=== PATIENT | male | born 1950 | race Caucasian/White ===

== ENCOUNTER 2019-11-24 02:05 | Observation (INO) | payer MEDICARE, OTHER, SELFPAY ==
[2019-11-24] VITALS (11 sets, daily range): BP systolic 112–173; BP diastolic 67–88; PULSE 45–81; RESP 16–18; TEMP 36.5–36.9; O2SAT 94–97; BMI 25.8
--- NOTE | 2019-11-24 02:25 | CTR_ITS ---
PROCEDURE INFORMATION: Exam: CT Abdomen And Pelvis With Contrast Exam date and time: 11/24/2019 2:26 AM Age: 69 years old Clinical indication: Abdominal pain; Generalized; Prior surgery; Surgery type: Hernia TECHNIQUE: Imaging protocol: Computed tomography of the abdomen and pelvis with intravenous contrast. Radiation optimization: All CT scans at this facility use at least one of these dose optimization techniques: automated exposure control; mA and/or kV adjustment per patient size (includes targeted exams where dose is matched to clinical indication); or iterative reconstruction. Contrast material: OMNI 300; Contrast volume: 95 ml; Contrast route: INTRAVENOUS (IV); COMPARISON: No relevant prior studies available. RADIATION DOSE METRICS: Total DLP (mGy-cm): 755.16 FINDINGS: Lungs: Dependent atelectasis posterior lower lungs. Calcified granulomata right mid and lower lung. Noncalcified nodule right lower lung measures 0.3 cm series 2, image 4. Liver: Multiple hypodensities throughout the liver most suggestive of cysts with smaller hypodensities too small for definitive characterization. Largest cyst caudate lobe measures 5.0 cm. Gallbladder and bile ducts: Normal. No calcified stones. No ductal dilation. Pancreas: Normal. No ductal dilation. Spleen: Normal. No splenomegaly. Adrenals: Normal. No mass. Kidneys and ureters: Normal. No hydronephrosis. Stomach and bowel: Moderate fluid expansion of the stomach. Fluid-filled small bowel and colon. There is minor left pericolonic soft tissue stranding. Limited segment of nondistention of distal small bowel. Mild mesenteric stranding of confluence of fluid-filled small bowel low right abdomen. Distal colonic diverticulosis. Appendix: No evidence of appendicitis. Intraperitoneal space: See Soft tissues finding. Vasculature: Unremarkable. No abdominal aortic aneurysm. Lymph nodes: Unremarkable. No enlarged lymph nodes. Urinary bladder: Unremarkable as visualized. Reproductive: Unremarkable as visualized. Bones/joints: Degenerative changes of the spine. Soft tissues: Upper abdominal wall hernia containing omentum. Fat stranding of omental structures within the hernia with omental tethering. CT/CT abdomen pelvis w con* [id number] IMPRESSION: 1. Upper abdominal hernia containing fatty omentum positioned right of midline 7.2 cm cranial to the umbilicus. Indeterminate significance of associated stranding inflammation or edema and adjacent omental tethering which could be suggestive of early changes of inflammation/edema or incarceration/strangulation. 2. Diffuse moderate fluid expanded bowel involving the stomach, majority of small bowel and colon. Small collection of fluid, tethering and stranding of confluence of fluid-filled small bowel in the low right abdomen. Nonspecific additional soft tissue stranding left pericolic gutter. While the differential could include gastroenteritis/colitis or ileus an element of early or incomplete distal small bowel mechanical obstruction could be present. Consider surgical consultation. 3. Distal colonic diverticulosis. Focal soft tissue stranding involving diverticulum within the left colon with enhancement is doubtful for focal diverticulitis. 4. Multiple hepatic cysts.No further follow-up is recommended. 5. Nodule right lower lung.For patients at low risk (minimal or absent history of smoking and of other known risk factors), no routine follow-up is indicated. For patients at high risk (history of smoking or of other known risk factors), consider optional CT Chest at 12 months. (Reference: Austyn) References: Austyn H, et al. Guidelines for Management of Incidental Pulmonary Nodules Detected on CT Images: From the Fleischner Society 2017. Radiology. 2017;284(1):228-243. Radiation Dose CTDIVOL = (mGy): DLP = 755.16 (mGy-cm)
--- NOTE | 2019-11-24 02:28 | ED_ITS ---
HPI - Abdominal Pain General: Chief Complaint: Abdominal Pain Stated Complaint: ab pain and cramping Time Seen by Provider: 11/24/19 02:20 Source: patient Mode of arrival: ambulatory Limitations: no limitations History of Present Illness: HPI narrative: Mr. Fierro is a nice 69-year-old male who comes in complaining of cramping abdominal pain. His pain is been constant since about 3 PM yesterday. Scribes the pain is mostly the lower part of his abdomen but is now moving up. States he is not had a bowel movement for couple days now. He feels as though his abdomen is bloated. Tonight before coming in he had numerous episodes of vomiting. He denies any blood in his vomit or recent blood in his stools. Denies any fevers or chills. He has no testicle pain or urinary symptoms such as urinary frequency or urgency. Patient denies having anything like this in the past. He is not tried anything at home for this other than milk of magnesia but that did not help. Patient does state that he has had a hernia surgery in the past that has failed and he has a recurrent hernia. At this time he states that is where his pain is most significant. Associated Symptoms: Reports nausea and vomiting; Denies chills, coffee ground emesis, constipation, GI cramping, diarrhea, dysuria, fever(s), heartburn, hematochezia, hematuria, hematemesis, melena and syncope Review of Systems Const: Denies: fever(s), chills, body aches, fatigue, malaise or diaphoresis Eyes: Denies: change in vision, blurry vision, photophobia, eye discomfort, eye discharge, eye redness or yellow eyes ENMT: Denies: throat pain, odynophagia, hoarseness, swelling of lips/tongue, ear or mastoid pain, ear discharge, change in hearing or nasal discharge Card: Denies: chest pain, palpitations, irregular heart rhythm, edema, lightheadedness, syncope, pre-syncope, dyspnea on exertion or orthopnea Resp: Denies: dyspnea, productive cough, non-productive cough, wheezing, hemoptysis or chest congestion GI: Reports: abdominal pain, nausea and vomiting; Denies: hematemesis, coffee ground emesis, heartburn, diarrhea, constipation, GI cramping, hematochezia or melena : Denies: flank pain, dysuria, urinary frequency, urinary urgency or hematuria Musc: Denies: neck pain, back pain, extremity pain, extremity swelling, joint pain, joint swelling, joint redness, joint warmth or joint stiffness Skin/Breast: Denies: rash, pruritus, erythema, skin pain or skin tenderness Neuro: Denies: headache(s), numbness in extremities, weakness in extremities, sensory changes, lack of coordination, difficulty walking, dizziness, vertigo, confusion, Slurred speech present or seizure-like activity Naldo/Lymph: Denies: easy bruising, easy bleeding, petechiae, purpura or enlarged lymph nodes All/Imm: Denies: urticaria, throat swelling, tongue swelling, facial swelling or acute wheezing Physical Exam Const: COMMON NORMALS: no acute distress, patient oriented x3, no limitations and alert GENERAL APPEARANCE: cooperative HENMT: COMMON NORMALS: normocephalic, atraumatic, external ears normal, EAC's normal and Normal external nose present HEAD & SCALP: normal to inspection, normocephalic and atraumatic FACE & SINUS: normal facial exam and face symmetric NOSE: Normal external nose present and Normal nares present EXTERNAL EAR: Yes external ears normal EXTERNAL AUDITORY CANAL: EAC's normal MOUTH: Normal oral and palatal mucosa present, lip normal and tongue normal Eye: COMMON NORMALS: Equal, round and reactive pupils present and conjunctivae normal GENERAL EYE: appearance normal, both eyes and all related structures ALIGNMENT: Yes alignment normal PERIORBITAL: periorbital findings normal EYELID: eyelids normal CONJUNCTIVA: Yes conjunctivae normal SCLERA: sclerae normal PUPIL: Yes Equal, round and reactive pupils present Neck/C-Spine: COMMON NORMALS: full ROM, no lymphadenopathy, supple, no meningeal signs and no JVD GENERAL: Yes normal visual inspection and Yes trachea midline Chest: COMMONS NORMALS: normal inspection of the chest and normal palpation of entire chest wall Resp: COMMON NORMALS: normal respiratory effort, No retractions, No use of accessory muscles and clear to auscultation bilaterally EFFORT & INSPECTION: Yes able to speak in complete sentences and Yes symmetric chest movement AUSCULTATION: clear to auscultation bilaterally, no crackles, no rales, no rhonchi and no wheezes Cardio: COMMON NORMALS: no JVD, regular rate, regular rhythm, S1 normal heart sound present and S2 normal heart sound present RATE: regular rate RHYTHM: regular rhythm HEART SOUNDS: S1 normal heart sound present, S2 normal heart sound present, no click, no gallops, no murmurs and no rubs GI: COMMON NORMALS: Soft to palpation and No hepatosplenomegaly present PALPATION: Yes Soft to palpation, Yes Tenderness to palpation present (GI) (Moderate diffusely.), No Guarding due to palpation present (GI), No Rigid due to palpation, Yes No hepatosplenomegaly present, No Hernia present, No Palpable mass present and No Pulsatile mass present : COMMON NORMALS: Yes no CVA tenderness BLADDER/KIDNEY EXAM: Yes no CVA tenderness Back/Pelvis: COMMON NORMALS: no CVA tenderness, thoracic and lumbar spine normal to inspection, no thoracic nor lumbar tenderness and thoraco-lumbar ROM normal Extremity: COMMON NORMALS: normal to inspection, full ROM, capillary refill normal, no joint enlargement, no clubbing, cyanosis or edema and no calf tenderness Neuro: COMMON NORMALS: patient oriented x3, CN's II-XII intact bilaterally, moves all extremities, no focal motor deficits and no sensory deficits noted SENSORIUM/ORIENTATION: Yes alert MENINGEAL SIGNS: Yes no meningeal signs SPEECH: speech normal Psych: COMMON NORMALS: mental status grossly normal, Normal thought process present, cooperative, normal affect, speech normal and activity/motor behavior normal SPEECH: Yes normal speech THOUGHT PROCESS: Normal thought process present Skin: COMMON NORMALS: no rashes or lesions noted, turgor normal, no jaundice, no petechiae and no mottling GENERAL SKIN EXAM: no rashes or lesions noted and turgor normal Course Vital Signs: Vital signs: Vital Signs Temperature 98.3 F 11/24/19 02:14 Pulse Rate 55 L 11/24/19 03:06 Respiratory Rate 18 11/24/19 03:06 Blood Pressure 133/76 11/24/19 03:06 Pulse Oximetry 96 11/24/19 03:06 MDM - Abdominal Pain MDM Narrative: Medical decision making narrative: 444 -after coming back from surgery and on reexamination the patient is feeling tremendously better. He did have a large bowel movement that he states was not diarrhea and nonbloody here in the ER. When asked to show me where his greatest area of pain had previously been the patient guided my hand to his hernia and with just laying my hand on the area and without any pressure at all the hernia spontaneously reduced. The patient did not have any pain with this. The patient states his hernia will come and go and has done so ever since his hernia surgery failed in 2010. I discussed the CT in detail with the radiologist and she believes the patient is likely going to have recurrent symptoms. She gave a broad differential of early partial mechanical small bowel obstruction, colitis, gastroenteritis among many others. I see no clinical evidence of mesenteric ischemia. At this time though the patient is already beginning to have some cramping recur but it is not as intense and it is much shorter in duration than prior. Concerned the patient may have recurrence of his symptoms and he [place] from here. He has no chronic medical problems. I reviewed the case in full with Dr. Andrea he agrees to admit the patient to the hospital for observation. At this time the patient has no sign of a surgical abdomen/peritonitis. I see no evidence of mesenteric ischemia. We will continue to gently hydrate him and give him empiric antibiotics for any gastroenteritis or colitis. Further care will be dictated by Dr. Andrea. Also going to hold off an NG tube at this time as there is no definitive obstruction and the patient has not vomited since he has been here. Differential Diagnosis: Differential diagnosis abdominal pain: Likely abdominal pain, acute appendicitis, constipation, diverticulitis, gastroenteritis, pancreatitis and small bowel obstruction Lab Data: Attestation: I reviewed the patient's lab results. Labs: Lab Results 11/24/19 11/24/19 11/24/19 Range/Units 02:29 02:29 02:29 WBC 8.6 (4.0-10.0) 10^3/ uL RBC 5.05 (4.1-5.3) 10^6/u L Hgb 16.0 (11.7-16.6) g/dL Hct 47.8 (42.0-52.0) % MCV 94.7 H (80-94) fL MCH 31.7 (28.0-34.0) pg MCHC 33.5 (30.0-36.0) g/dL RDW 13.3 (12.1-15.1) % Plt Count 284 (130-400) 10^3/c mm MPV 10.0 (7.4-10.4) fL Neut % (Auto) 84.8 % Lymph % (Auto) 9.1 % Bowie % (Auto) 5.1 % Eos % (Auto) 0.2 % Baso % (Auto) 0.5 % Neut # (Auto) 7.28 (1.8-7.7) 10^3/u L Lymph # (Auto) 0.8 (0.8-4.8) 10^3/u L Bowie # (Auto) 0.4 (0.2-0.9) 10^3/u L Eos # (Auto) 0.0 (0.0-0.8) 10^3/u L Baso # (Auto) 0.0 (0.0-0.1) 10^3/u L Nucleated RBC % (a uto) 0 % Nucleated RBCs # 0.0 /100WBC Sodium 134 L (136-145) mmol/L Potassium 4.0 (3.5-5.1) mmol/L Chloride 101 (98-107) mmol/L Carbon Dioxide 22 (22-29) mmol/L Anion Gap 15.0 (5-19) BUN 14 (8-23) mg/dL Creatinine 0.8 (0.7-1.2) mg/dL GFR Calculation 96.4 (90-130) mL/min Glucose 162 H (65-115) mg/dL Calculated Osmolal ity 282 L (285-295) mOsm/k g Lactic Acid 1.9 (0.5-2.2) mmol/L Calcium 9.7 (8.5-10.5) mg/dL Magnesium 2.4 H (1.7-2.3) mg/dL Total Bilirubin 1.1 (0.15-1.2) mg/dL AST 21 (0-40) U/L ALT 17 (0-41) U/L Alkaline Phosphata se 48 (40-130) IU/L Total Protein 7.4 (6.6-8.7) g/dL Albumin 4.3 (3.5-5.2) g/dL Globulin 3.1 (1.3-4.6) g/dL Lipase 20 (13-60) U/L Urine Color (Yellow) Urine Appearance (CLEAR) Urine pH (5-7) Ur Specific Gravit y (1.005-1.030) Urine Protein (Negative) Urine Glucose (UA) (Normal) Urine Ketones (Negative) Urine Blood (Negative) Urine Nitrate (Negative) Urine Bilirubin (Negative) Prot Sulfosalicyli c Acd (Negative) Urine Urobilinogen (Negative) mg/dL Ur Leukocyte Luci ase (Negative) Urine RBC (0-2) /hpf Urine WBC (0-5) /hpf Ur Squamous Epith Cells (0-5) /hpf Amorphous Sediment /hpf Urine Bacteria (NONE) /hpf 11/24/19 Range/Units 02:39 WBC (4.0-10.0) 10^3/ uL RBC (4.1-5.3) 10^6/u L Hgb (11.7-16.6) g/dL Hct (42.0-52.0) % MCV (80-94) fL MCH (28.0-34.0) pg MCHC (30.0-36.0) g/dL RDW (12.1-15.1) % Plt Count (130-400) 10^3/c mm MPV (7.4-10.4) fL Neut % (Auto) % Lymph % (Auto) % Bowie % (Auto) % Eos % (Auto) % Baso % (Auto) % Neut # (Auto) (1.8-7.7) 10^3/u L Lymph # (Auto) (0.8-4.8) 10^3/u L Bowie # (Auto) (0.2-0.9) 10^3/u L Eos # (Auto) (0.0-0.8) 10^3/u L Baso # (Auto) (0.0-0.1) 10^3/u L Nucleated RBC % (a uto) % Nucleated RBCs # /100WBC Sodium (136-145) mmol/L Potassium (3.5-5.1) mmol/L Chloride (98-107) mmol/L Carbon Dioxide (22-29) mmol/L Anion Gap (5-19) BUN (8-23) mg/dL Creatinine (0.7-1.2) mg/dL GFR Calculation (90-130) mL/min Glucose (65-115) mg/dL Calculated Osmolal ity (285-295) mOsm/k g Lactic Acid (0.5-2.2) mmol/L Calcium (8.5-10.5) mg/dL Magnesium (1.7-2.3) mg/dL Total Bilirubin (0.15-1.2) mg/dL AST (0-40) U/L ALT (0-41) U/L Alkaline Phosphata se (40-130) IU/L Total Protein (6.6-8.7) g/dL Albumin (3.5-5.2) g/dL Globulin (1.3-4.6) g/dL Lipase (13-60) U/L Urine Color Yellow (Yellow) Urine Appearance Sl hazy (CLEAR) Urine pH 8 H (5-7) Ur Specific Gravit y 1.020 (1.005-1.030) Urine Protein Neg (Negative) Urine Glucose (UA) Norm (Normal) Urine Ketones 1+ H (Negative) Urine Blood Neg (Negative) Urine Nitrate Negative (Negative) Urine Bilirubin Neg (Negative) Prot Sulfosalicyli c Acd Negative (Negative) Urine Urobilinogen Norm (Negative) mg/dL Ur Leukocyte Luci ase Negative (Negative) Urine RBC None (0-2) /hpf Urine WBC None (0-5) /hpf Ur Squamous Epith Cells Rare (0-5) /hpf Amorphous Sediment 2+ /hpf Urine Bacteria Trace (NONE) /hpf Imaging Data ^: CT Abd/Pel: Radiologist's impression: [address] [address] [address] Scan Report Signed with Addenda Patient: Rocco Fierro Unit #: [id number] : 1950 Age/Sex: 69 / M ADM Date: 11/24/19 Loc: ER Room/Bed: Attending Dr: Ordering Provider/Ordering MD: Michelle Arriaga DO Date of Service: 11/24/19 Procedure(s): CT abdomen pelvis w con* [id number] Accession Number(s): [id number] Report Number: [id number]/CT abdomen pelvis w con* [id number] THIS REPORT CONTAINS FINDINGS THAT MAY BE CRITICAL TO PATIENT CARE. The findings were verbally communicated via telephone conference with Michelle Massey by Dr. Thomas on 11/24/2019 4:00 AM CDT. The results were acknowledged and understood. Radiation Dose CTDIVOL = (mGy): DLP = 755.16 (mGy-cm) Addendum Dictated By: Billie Thomas DO Addendum Signed By: Billie Thomas DO Signed Date/Time: 11/23 0419 Addendum Cosigned By: PROCEDURE INFORMATION: Exam: CT Abdomen And Pelvis With Contrast Exam date and time: 11/24/2019 2:26 AM Age: 69 years old Clinical indication: Abdominal pain; Generalized; Prior surgery; Surgery type: Hernia TECHNIQUE: Imaging protocol: Computed tomography of the abdomen and pelvis with intravenous contrast. Radiation optimization: All CT scans at this facility use at least one of these dose optimization techniques: automated exposure control; mA and/or kV adjustment per patient size (includes targeted exams where dose is matched to clinical indication); or iterative reconstruction. Contrast material: OMNI 300; Contrast volume: 95 ml; Contrast route: INTRAVENOUS (IV); COMPARISON: No relevant prior studies available. RADIATION DOSE METRICS: Total DLP (mGy-cm): 755.16 FINDINGS: Lungs: Dependent atelectasis posterior lower lungs. Calcified granulomata right mid and lower lung. Noncalcified nodule right lower lung measures 0.3 cm series 2, image 4. Liver: Multiple hypodensities throughout the liver most suggestive of cysts with smaller hypodensities too small for definitive characterization. Largest cyst caudate lobe measures 5.0 cm. Gallbladder and bile ducts: Normal. No calcified stones. No ductal dilation. Pancreas: Normal. No ductal dilation. Spleen: Normal. No splenomegaly. Adrenals: Normal. No mass. Kidneys and ureters: Normal. No hydronephrosis. Stomach and bowel: Moderate fluid expansion of the stomach. Fluid-filled small bowel and colon. There is minor left pericolonic soft tissue stranding. Limited segment of nondistention of distal small bowel. Mild mesenteric stranding of confluence of fluid-filled small bowel low right abdomen. Distal colonic diverticulosis. Appendix: No evidence of appendicitis. Intraperitoneal space: See Soft tissues finding. Vasculature: Unremarkable. No abdominal aortic aneurysm. Lymph nodes: Unremarkable. No enlarged lymph nodes. Urinary bladder: Unremarkable as visualized. Reproductive: Unremarkable as visualized. Bones/joints: Degenerative changes of the spine. Soft tissues: Upper abdominal wall hernia containing omentum. Fat stranding of omental structures within the hernia with omental tethering. CT/CT abdomen pelvis w con* [id number] IMPRESSION: 1. Upper abdominal hernia containing fatty omentum positioned right of midline 7.2 cm cranial to the umbilicus. Indeterminate significance of associated stranding inflammation or edema and adjacent omental tethering which could be suggestive of early changes of inflammation/edema or incarceration/strangulation. 2. Diffuse moderate fluid expanded bowel involving the stomach, majority of small bowel and colon. Small collection of fluid, tethering and stranding of confluence of fluid-filled small bowel in the low right abdomen. Nonspecific additional soft tissue stranding left pericolic gutter. While the differential could include gastroenteritis/colitis or ileus an element of early or incomplete distal small bowel mechanical obstruction could be present. Consider surgical consultation. 3. Distal colonic diverticulosis. Focal soft tissue stranding involving diverticulum within the left colon with enhancement is doubtful for focal diverticulitis. 4. Multiple hepatic cysts.No further follow-up is recommended. 5. Nodule right lower lung.For patients at low risk (minimal or absent history of smoking and of other known risk factors), no routine follow-up is indicated. For patients at high risk (history of smoking or of other known risk factors), consider optional CT Chest at 12 months. (Reference: Austyn) References: Tazhogail H, et al. Guidelines for Management of Incidental Pulmonary Nodules Detected on CT Images: From the Fleischner Society 2017. Radiology. 2017;284(1):228-243. Radiation Dose CTDIVOL = (mGy): DLP = 755.16 (mGy-cm) Dictated By: Billie Thomas DO Signed By: Billie Thomas DO Signed Date/Time: 11/24/19418 DD/ 6 Discharge Plan Discharge Patient Disposition: Placed in Observation Clinical Impression: Abdominal pain, Gastroenteritis, Small bowel obstruction Condition: Stable Coding Level of Care Code ED Specialist [employer] for [employer] Fwd Exam Comprehensive
[2019-11-24] MEDS: sodium chloride 0.9% 1,000 ML 100 ML IV ×2 (02:39→03:13)
[2019-11-24] MEDS: ondansetron 2 mg/ML SDV 2 mL 4 MG IVP (02:39)
[2019-11-24] MEDS: morphine 4 mg/mL SDV 1 mL IVP (02:39)
[2019-11-24 02:46] LABS: Basophils % 0.5 %; Eosinophils % 0.2 %; Hematocrit 47.8 % (42.0-52.0); Lymphocytes # 0.8 10^3/uL (0.8-4.8); Lymphocytes % 9.1 %; Mean Corpuscular HGB Conc 33.5 g/dL (30.0-36.0); Mean Corpuscular Hemoglobin 31.7 pg (28.0-34.0); Mean Corpuscular Volume 94.7 fL (80-94); Monocytes # 0.4 10^3/uL (0.2-0.9); Monocytes % 5.1 %; Neutrophils # 7.28 10^3/uL (1.8-7.7); Neutrophils % 84.8 %; Nucleated Red Blood Cells % 0 %; Platelet Count 284 10^3/cmm (130-400); Red Blood Count 5.05 10^6/uL (4.1-5.3); Red Cell Distribution Width 13.3 % (12.1-15.1); White Blood Count 8.6 10^3/uL (4.0-10.0)
[2019-11-24 02:59] LABS: Alanine Aminotransferase 17 U/L (0-41); Albumin Level 4.3 g/dL (3.5-5.2); Alkaline Phosphatase 48 IU/L (40-130); Aspartate Amino Transferase 21 U/L (0-40); Blood Urea Nitrogen 14 mg/dL (8-23); Calcium 9.7 mg/dL (8.5-10.5); Carbon Dioxide 22 mmol/L (22-29); Chloride 101 mmol/L (98-107); Creatinine Clr Calc Pharmacy 91.1035; Globulin 3.1 g/dL (1.3-4.6); Glomerular Filtration Rate 96.4 mL/min (90-130); Glucose 162 mg/dL (65-115); Lactic Sepsis W/Reflex 1.9 mmol/L (0.5-2.2); Lipase 20 U/L (13-60); Magnesium 2.4 mg/dL (1.7-2.3); Osmolality Calculated 282 mOsm/kg (285-295); Sodium 134 mmol/L (136-145); Total Bilirubin 1.1 mg/dL (0.15-1.2); Total Protein 7.4 g/dL (6.6-8.7)
[2019-11-24 03:03] LABS: Bilirubin Urine Neg (Negative); Blood Urine Neg (Negative); Glucose Urine UA Norm (Normal); Ketones Urine 1+ (Negative); Leukocyte Esterase Urine Negative (Negative); Nitrate Urine Negative (Negative); Protein Urine Neg (Negative); Squamous Epithelial Cell Urine RARE /hpf (0-5); Sulfosalicylic Acid Urine Negative (Negative); Urine Appearance SL Hazy (CLEAR); Urine Color Yellow (Yellow); Urobilinogen Urine Norm (Negative); pH Urine 8 (5-7)
[2019-11-24 03:04] LABS: Amorphous Sediment Urine 2+ /hpf; Bacteria Urine TRACE /hpf
--- NOTE | 2019-11-24 03:08 | PC.NURSE ---
during pt prunding, pt assisted to bathroom
[2019-11-24] MEDS: iohexol 300 mg/mL 100 mL Btl IV (03:27)
--- NOTE | 2019-11-24 04:52 | PC.NURSE ---
Dr informed pt of inpatient vs outpatient options. Pt states he wishes to make outpatient appt with surgeon after establishing with a local PCP. ok with pt's choice. Will provide d/c orders after last liter of fluid
--- NOTE | 2019-11-24 04:59 | PC.NURSE ---
pt changed his mind, wishes to be admitted
[2019-11-24] MEDS: ciprofloxacin 400 MG/200 ML PREMIX 200 MG IV (05:14)
--- NOTE | 2019-11-24 06:27 | P.HP_ITS ---
Providers/Chief Complaint Admitting Physician: Kamila Ling MD Chief Complaint: ab pain and cramping History of Present Illness Chief Complaint: History of present illness: Rocco Fierro is a 69 year old male patient presents to the emergency department with worsening crampy abdominal pain as it started yesterday. Patient is attributing it to constipation as he has been chronically constipated and take MiraLAX. He also had history of ventral hernia repair in [facility] with a mesh placement and it recurred but the patient is able to push it back with ease. Eyes any fevers chills nausea or vomiting and he did have a bowel movement after the CT scan was done. Patient reports that he has been tested for COVID-19 back in August and he and his were positive and unfortunately his spouse later on. Patient was retested back early in October and he was negative for COVID-19. As his symptoms were worse general surgery was consulted for further evaluation potential management. She reports to me that he got dehydrated yesterday and he does give history of diverticulosis and he is keeping up with his screening colonoscopies. She describes his pain more crampy in the center of the abdomen without being referred nothing seems to make it worse yet he reports constipation and he did have some relief with a bowel movement. CT scan of the abdomen and pelvis was done that showed FINDINGS: Lungs: Dependent atelectasis posterior lower lungs. Calcified granulomata right mid and lower lung. Noncalcified nodule right lower lung measures 0.3 cm series 2, image 4. Liver: Multiple hypodensities throughout the liver most suggestive of cysts with smaller hypodensities too small for definitive characterization. Largest cyst caudate lobe measures 5.0 cm. Gallbladder and bile ducts: Normal. No calcified stones. No ductal dilation. Pancreas: Normal. No ductal dilation. Spleen: Normal. No splenomegaly. Adrenals: Normal. No mass. Kidneys and ureters: Normal. No hydronephrosis. Stomach and bowel: Moderate fluid expansion of the stomach. Fluid-filled small bowel and colon. There is minor left pericolonic soft tissue stranding. Limited segment of nondistention of distal small bowel. Mild mesenteric stranding of confluence of fluid-filled small bowel low right abdomen. Distal colonic diverticulosis. Appendix: No evidence of appendicitis. Intraperitoneal space: See Soft tissues finding. Vasculature: Unremarkable. No abdominal aortic aneurysm. Lymph nodes: Unremarkable. No enlarged lymph nodes. Urinary bladder: Unremarkable as visualized. Reproductive: Unremarkable as visualized. Bones/joints: Degenerative changes of the spine. Soft tissues: Upper abdominal wall hernia containing omentum. Fat stranding of omental structures within the hernia with omental tethering. CT/CT abdomen pelvis w con* [id number] IMPRESSION: 1. Upper abdominal hernia containing fatty omentum positioned right of midline 7.2 cm cranial to the umbilicus. Indeterminate significance of associated stranding inflammation or edema and adjacent omental tethering which could be suggestive of early changes of inflammation/edema or incarceration/strangulation. 2. Diffuse moderate fluid expanded bowel involving the stomach, majority of small bowel and colon. Small collection of fluid, tethering and stranding of confluence of fluid-filled small bowel in the low right abdomen. Nonspecific additional soft tissue stranding left pericolic gutter. While the differential could include gastroenteritis/colitis or ileus an element of early or incomplete distal small bowel mechanical obstruction could be present. Consider surgical consultation. 3. Distal colonic diverticulosis. Focal soft tissue stranding involving diverticulum within the left colon with enhancement is doubtful for focal diverticulitis. 4. Multiple hepatic cysts.No further follow-up is recommended. 5. Nodule right lower lung.For patients at low risk (minimal or absent history of smoking and of other known risk factors), no routine follow-up is indicated. For patients at high risk (history of smoking or of other known risk factors), consider optional CT Chest at 12 months. (Reference: [place]) Review of Systems General: Reports: 10 or more systems reviewed and unremarkable except in HPI and below Medications/Allergies Home Medications Medication Instructions Recorded Confirmed Last Taken Type alprazolam 0.25 mg PO BEDTIME 11/24/19 11/24/19 11/24/19 History aspirin 81 mg PO DAILY 11/24/19 11/24/19 11/23/19 History metoprolol succinate 12.5 mg PO DAILY 11/24/19 11/24/19 11/23/19 History Allergies Allergy/AdvReac Type Severity Reaction Status Date / Time Penicillins Allergy ADR-Faintin Verified 11/24/19 06:46 g PFSH Acute PFSH: Medical History History of abdominal hernia Surgical History H/O ventral hernia repair Vitals/I&O/Wt Last Vital Signs Temp 98.3 F 11/24/19 02:14 Pulse 52 L 11/24/19 06:01 Resp 18 11/24/19 06:01 BP 118/72 11/24/19 06:01 Pulse Ox 94 11/24/19 06:01 Weight last 48 hrs Weight 170 lb Physical Exam Narrative: EXAM NARRATIVE: Patient is conscious alert oriented X3 BMI Head and neck examination PERRLA no masses no cervical lymphadenopathy no jaundice Cardiac examination audible S1-S2 no murmurs no gallops no arrhythmias Chest is clear bilateral,abscence of Rhonchi or wheezes,no surgical emphysema Right sided ventral abdominal hernia, defect is appreciated with no inca rceration. Measures about 3 x 3 inches Otherwise abdomen nontender nondistended soft no organomegaly guarding or rigidity/no signs of peritonitis Extremities no cyanosis no clubbing no edema Data : 11/24/19 02:29 11/24/19 02:29 A&P Assessment and plan (1) Abdominal pain: 6:30 AM after thorough history physical examination and reviewing the chart and images with my personal interpretation. I do believe that the patient got dehydrated in addition to element of constipation. Yet some of the subtle changes on the CT scan could be concerning for a potential underlying enteritis/colitis. We will plan to have the patient on antimicrobial therapy with IV fluid resuscitation. No surgical intervention at this point Repeated physical examination clear liquids 1300 Patient seems to be doing well and had multiple loose bowel movements and tolerating p.o. intake and have good urine output. Assurance and education All questions have been answered and all concerns have been addressed to patient's satisfaction. Status: Acute Qualifiers: Abdominal location: generalized Qualified Code(s): R10.84 - Generalized abdominal pain Attestations Medical Necessity Statement*: Observation status for appropriate hydration and repeated physical examination. We will plan to discharge home today. Time Spent in Patient Care: (>than 50% of time spent in counselling and/or direct pt care on unit) . 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
[2019-11-24] MEDS: metroNIDAZOLE IV 500 MG/100 ML PREMIX 100 MG IV (09:37)
[2019-11-24] MEDS: sodium chloride 0.9% 1,000 ML 150 ML IV (09:37)
--- NOTE | 2019-11-24 13:00 | PM.SDS ---
Short Stay Summary Providers Date of Admit/Discharge: 11/24/19 Attending Provider: Sean Andrea MD Chief Complaint: ab pain and cramping HPI History of Present Illness Rocco Fierro is a 69 year old male presents with worsening crampy abdominal pain as patient has been constipated, was worked up in the emergency department and CT scan was obtained was not suggesting of any acute surgical disease. Except for the patient had history of recurrent hernia and he has been reducing it on his own. Review of Systems General: Reports: 10 or more systems reviewed and unremarkable except in HPI and below Home Meds/Allergies Home Medications and Allergies Home Medications Medication Instructions Recorded Confirmed Type alprazolam 0.25 mg PO BEDTIME 11/24/19 11/24/19 History aspirin 81 mg PO DAILY 11/24/19 11/24/19 History metoprolol succinate 12.5 mg PO DAILY 11/24/19 11/24/19 History Allergies Allergy/AdvReac Type Severity Reaction Status Date / Time Penicillins Allergy ADR-Faintin Verified 11/24/19 13:01 g PFSH Acute PFSH: Medical History History of abdominal hernia Surgical History H/O ventral hernia repair Vitals/I&O/Wt Last Vital Signs Temp 98.4 F 11/24/19 11:16 Pulse 60 11/24/19 11:16 Resp 16 11/24/19 11:16 BP 128/67 11/24/19 11:16 Pulse Ox 94 11/24/19 11:16 11/23/19 11/24/19 11/24/19 22:59 06:59 14:59 Intake Total 240 / 240 Balance 240 / 240 Weight last 48 hrs Weight 170 lb Physical Exam Narrative: EXAM NARRATIVE: Patient is conscious alert oriented X3 BMI Head and neck examination PERRLA no masses no cervical lymphadenopathy no jaundice Cardiac examination audible S1-S2 no murmurs no gallops no arrhythmias Chest is clear bilateral,abscence of Rhonchi or wheezes,no surgical emphysema Right sided ventral abdominal hernia, defect is appreciated with no incarceration. Measures about 3 x 3 inches Otherwise abdomen nontender nondistended soft no organomegaly guarding or rigidity/no signs of peritonitis Extremities no cyanosis no clubbing no edema Hospital Course Admission Diagnoses: Abdominal pain Hospital Course: Patient overall doing well and has been responding to conservative measures and tolerating well p.o. intake and have good urine output. Multiple bowel movements Discharge Summary: 69 years old gentleman with crampy abdominal pain attributed to element of dehydration and history of constipation. Asymptomatic ventral incisional hernia. Overall patient did well continue to have stable vital signs and tolerating p.o. intake and good urine output. SSS Data Data Completed and Pending: Completed Studies During Hospitalization Category Date Time Status CT abdomen pelvis w con* [id number] Stat Cat Scan 11/24/19 02:25 Completed Pending at discharge Category Date Time Status Basic Metabolic P tez AM LABS Lab 11/25/19 04:00 Ordered Complete Blood Co unt w/Auto AM LABS Lab 11/25/19 04:00 Ordered Diagnoses at Discharge Discharge Diagnosis (1) Abdominal pain: Status: Acute Problem details: Condition resolved and patient responding to conservative measures Qualifiers: Abdominal location: generalized Qualified Code(s): R10.84 - Generalized abdominal pain Discharge Plan Discharge Patient Disposition: Home Condition: Stable Prescriptions: New ciprofloxacin HCl 500 mg tablet 500 mg PO BID Qty: 14 RF: 0 Flagyl 500 mg tablet 500 mg PO BID 7 Days Qty: 14 RF: 0 Continued alprazolam 0.25 mg tablet 0.25 mg PO BEDTIME RF: 0 aspirin 81 mg Tablet,Chewable 81 mg PO DAILY RF: 0 metoprolol succinate 25 mg tablet extended release 24 hr 12.5 mg PO DAILY RF: 0 Discharge Orders: Discharge Order (Routine); Ordered 11/24/19 Ordered By: Sean Andrea Referrals: Sean Andrea MD [Physician] - (Return to surgery office in 2-week) Discharge Diet: Advance as tolerated Discharge Activity: Increase activity as tolerated Attestations Medical Necessity Statement*: Observation for appropriate IV fluid hydration and antimicrobial therapy Time Spent in Patient Care*: greater than 30 min Specific Discharge Activities: Specific discharge activities: educating patient Status at Discharge: Cognitive status at discharge: cognitively intact, Behavioral status at discharge: cooperative, Functional status at discharge: independent ambulation Overall status at discharge: patient is progressing back to baseline Quality Metrics Clinical Quality Measures: During this hospital stay, did patient experience: None Coding Level of Care Code Acute 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
== END 2019-11-24 14:25 | disposition home or self-care (01) ==
LOC: ER 04:53 → MEDSURG 06:27
PROVIDERS: Admitting Provider Hospitalist; Emergency Provider Emergency Medicine; Visit Provider Surgery
DX: R10.84 Generalized abdominal pain (principal); Z79.82 Long term (current) use of aspirin
CPT/HCPCS: 12345; 74177; 80053; 81001; 83605; 83690; 83735; 85025; 96361; 96365; 96375; 99283; 99285; G0378; J0744; J2270; J2405; J7030; Q9967; S0030

== ENCOUNTER 2022-10-28 05:11 | Emergency (ER) | payer MEDICARE, OTHER, SELFPAY ==
[2022-10-28 05:28] VITALS: BP 150/56; PULSE 66; RESP 18; TEMP 36.8; O2SAT 94; BMI 25.8
--- NOTE | 2022-10-28 05:34 | ED_ITS ---
Documented by User: Edison Rodríguez DO 10/28/22 05:36 HPI - Nausea/Vomiting/Diarrhea General: Chief complaint: Nausea/Vomiting/Diarrhea Stated complaint: n/v/d Time Seen by Provider: 10/28/22 05:13 History of Present Illness: Patient presents to the ER with complaints of nausea vomiting started around noon yesterday. Diarrhea that started around 8 PM last night. Patient's been having cramps in his lower abdomen otherwise denies any pain. Patient states he was exposed to COVID last week and and he feels the same this time as he did the last time he was diagnosed with COVID. Patient not been able to keep anything down and if he does keep it down it goes were immediately right at the other end. Patient states he knows he is dehydrated. Review of Systems General: Reports: 10 or more systems reviewed and unremarkable except in HPI and below PFSH ED PFSH: Medical History (Updated 10/28/22 @ 06:35 by Nguyễn Patterson DO) History of abdominal hernia Surgical History H/O ventral hernia repair Physical Exam Const: COMMON NORMALS: no acute distress, average body habitus, patient oriented x3, no limitations, healthy appearing, alert and well nourished HENMT: COMMON NORMALS: normocephalic, atraumatic, hearing grossly normal bilaterally, external ears normal, Normal external nose present and moist oral mucous membranes HEAD & SCALP: normocephalic and atraumatic NOSE: Normal external nose present EXTERNAL EAR: Yes external ears normal Eye: COMMON NORMALS: Equal, round and reactive pupils present, EOMs intact bilaterally, conjunctivae normal and no scleral icterus CONJUNCTIVA: Yes conjunctivae normal PUPIL: Yes Equal, round and reactive pupils present Neck/C-Spine: COMMON NORMALS: no JVD Chest: COMMONS NORMALS: normal inspection of the chest and normal palpation of entire chest wall Resp: COMMON NORMALS: normal respiratory effort, No retractions, No use of accessory muscles and clear to auscultation bilaterally AUSCULTATION: clear to auscultation bilaterally Cardio: COMMON NORMALS: no JVD, regular rate, regular rhythm, S1 normal heart sound present, S2 normal heart sound present, No gallops present (Cardio), No clicks present (Cardio), No murmurs present (Cardio) and No rub (Cardio) RATE: regular rate RHYTHM: regular rhythm HEART SOUNDS: S1 normal heart sound present and S2 normal heart sound present GI: COMMON NORMALS: Normal to inspection, nondistended, normoactive bowel sounds present, Soft to palpation, No hepatosplenomegaly present, no masses and no bruits; negative for non-tender (Mildly tender throughout) PALPATION: Yes Soft to palpation and Yes No hepatosplenomegaly present : COMMON NORMALS: Yes no CVA tenderness BLADDER/KIDNEY EXAM: Yes no CVA tenderness Back/Pelvis: COMMON NORMALS: no CVA tenderness Neuro: COMMON NORMALS: patient oriented x3 SENSORIUM/ORIENTATION: Yes alert Course Vital Signs: Vital signs: Vital Signs Temperature 98.3 F 10/28/22 05:28 Pulse Rate 66 10/28/22 05:28 Respiratory Rate 18 10/28/22 05:28 Blood Pressure 150/56 10/28/22 05:28 Pulse Oximetry 94 10/28/22 05:28 Oxygen Delivery Me thod Room Air 10/28/22 05:28 MDM - Nausea/Vomiting/Diarrhea Differential Diagnosis Likely gastroenteritis and dehydration; Unlikely traveler's diarrhea, food poisoning, clostridium difficile infection or drug-induced nausea and vomiting Medical Records I reviewed the patient's medical records. Lab Data I reviewed the patient's lab results. 10/28/22 05:38 10/28/22 05:38 Laboratory Results WBC 12.54 10^3/uL (3.29-11.43) H 10/28/22 05:38 RBC 5.19 10^6/uL (3.85-5.65) 10/28/22 05:38 Hgb 16.70 g/dL (11.27-16.99) 10/28/22 05:38 Hct 48.9 % (37-53) 10/28/22 05:38 MCV 94.2 fl (82-101) 10/28/22 05:38 MCH 32.2 pg (27-33) 10/28/22 05:38 MCHC 34.2 g/dL (30-55) 10/28/22 05:38 RDW 13.2 % (12.1-15.1) 10/28/22 05:38 Plt Count 250 10^3/cmm (157-399) 10/28/22 05:38 MPV 9.9 fL (7.4-10.4) 10/28/22 05:38 Neut % (Auto) 94.7 % 10/28/22 05:38 Lymph % (Auto) 2.6 % 10/28/22 05:38 [place] % (Auto) 2.2 % 10/28/22 05:38 Eos % (Auto) 0.0 % 10/28/22 05:38 Baso % (Auto) 0.2 % 10/28/22 05:38 Neut # (Auto) 11.88 10^3/uL (1.8-7.7) H 10/28/22 05:38 Lymph # (Auto) 0.3 10^3/uL (0.8-4.8) L 10/28/22 05:38 [place] # (Auto) 0.3 10^3/uL (0.2-0.9) 10/28/22 05:38 Eos # (Auto) 0.0 10^3/uL (0.0-0.8) 10/28/22 05:38 Baso # (Auto) 0.0 10^3/uL (0.0-0.1) 10/28/22 05:38 Nucleated RBC % (auto) 0 % 10/28/22 05:38 Nucleated RBCs # 0.0 /100WBC 10/28/22 05:38 Sodium 137 mmol/L (136-145) 10/28/22 05:38 Potassium 3.7 mmol/L (3.5-5.1) 10/28/22 05:38 Chloride 104 mmol/L (98-107) 10/28/22 05:38 Carbon Dioxide 20 mmol/L (22-29) L 10/28/22 05:38 Anion Gap 16.7 (5-19) 10/28/22 05:38 BUN 21 mg/dL (8-23) 10/28/22 05:38 Creatinine 0.8 mg/dL (0.7-1.2) 10/28/22 05:38 GFR Calculation 95.8 mL/min (90-130) 10/28/22 05:38 Glucose 118 mg/dL (65-115) H 10/28/22 05:38 Calculated Osmolality 288 mOsm/kg (285-295) 10/28/22 05:38 Calcium 9.0 mg/dL (8.5-10.5) 10/28/22 05:38 Magnesium 1.9 mg/dL (1.7-2.3) 10/28/22 05:38 Total Bilirubin 1.4 mg/dL (0.15-1.2) H 10/28/22 05:38 AST 15 U/L (0-40) 10/28/22 05:38 ALT 15 U/L (0-41) 10/28/22 05:38 Alkaline Phosphatase 46 U/L (40-130) 10/28/22 05:38 Total Protein 7.1 g/dL (6.6-8.7) 10/28/22 05:38 Albumin 4.4 g/dL (3.5-5.2) 10/28/22 05:38 Globulin 2.7 g/dL (1.3-4.6) 10/28/22 05:38 SARS-CoV-2 Ag (Rapid) negative (Negative) 10/28/22 05:38 Discharge Plan Discharge Patient Disposition: Home Clinical Impression: Gastroenteritis Condition: Stable Prescriptions: New promethazine 25 mg tablet 25 mg PO Q6H PRN (Reason: nausea and vomiting) Qty: 20 0RF No Action alprazolam 0.25 mg tablet 0.25 mg PO BEDTIME aspirin 81 mg Tablet,Chewable 81 mg PO DAILY metoprolol succinate 25 mg tablet extended release 24 hr 12.5 mg PO DAILY ciprofloxacin HCl 500 mg tablet 500 mg PO BID Qty: 14 0RF Discharge Orders: Discharge ED (Routine); Ordered 10/28/22 Ordered By: Nguyễn Patterson Referrals: David Cartwright MD [Primary Care Provider] - Discharge Diet: Clear Liquid Patient Instructions: Gastroenteritis (ED), Opioid Safety, Pain Management Sign Out Sign Out Data: Patient Sign Out occurred on 10/28/22 at 05:58. Patient's care was discussed, and care was transferred from to Nguyễn Patterson DO. 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 And Refrigeration Inspector for [facility] Fwd Documented by User: Nguyễn Patterson DO 10/28/22 06:44 HPI - Nausea/Vomiting/Diarrhea General: Chief complaint: Nausea/Vomiting/Diarrhea Stated complaint: n/v/d Time Seen by Provider: 10/28/22 05:13 [facility] ED PFSH: Medical History (Updated 10/28/22 @ 06:35 by Nguyễn Patterson DO) History of abdominal hernia Surgical History H/O ventral hernia repair Course Vital Signs: Vital signs: Vital Signs Temperature 98.3 F 10/28/22 05:28 Pulse Rate 66 10/28/22 05:28 Respiratory Rate 18 10/28/22 05:28 Blood Pressure 150/56 10/28/22 05:28 Pulse Oximetry 94 10/28/22 05:28 Oxygen Delivery Me thod Room Air 10/28/22 05:28 MDM - Nausea/Vomiting/Diarrhea Medical Decision Making Care assumed at change of shift. Patient states he is feeling better since receiving the fluids. Labs reviewed white count mildly elevated COVID-negative. We will discharge the patient home clear liquid diet promethazine as needed advance diet as tolerated. Lab Data 10/28/22 05:38 10/28/22 05:38 Laboratory Results WBC 12.54 10^3/uL (3.29-11.43) H 10/28/22 05:38 RBC 5.19 10^6/uL (3.85-5.65) 10/28/22 05:38 Hgb 16.70 g/dL (11.27-16.99) 10/28/22 05:38 Hct 48.9 % (37-53) 10/28/22 05:38 MCV 94.2 fl (82-101) 10/28/22 05:38 MCH 32.2 pg (27-33) 10/28/22 05:38 MCHC 34.2 g/dL (30-55) 10/28/22 05:38 RDW 13.2 % (12.1-15.1) 10/28/22 05:38 Plt Count 250 10^3/cmm (157-399) 10/28/22 05:38 MPV 9.9 fL (7.4-10.4) 10/28/22 05:38 Neut % (Auto) 94.7 % 10/28/22 05:38 Lymph % (Auto) 2.6 % 10/28/22 05:38 [place] % (Auto) 2.2 % 10/28/22 05:38 Eos % (Auto) 0.0 % 10/28/22 05:38 Baso % (Auto) 0.2 % 10/28/22 05:38 Neut # (Auto) 11.88 10^3/uL (1.8-7.7) H 10/28/22 05:38 Lymph # (Auto) 0.3 10^3/uL (0.8-4.8) L 10/28/22 05:38 [place] # (Auto) 0.3 10^3/uL (0.2-0.9) 10/28/22 05:38 Eos # (Auto) 0.0 10^3/uL (0.0-0.8) 10/28/22 05:38 Baso # (Auto) 0.0 10^3/uL (0.0-0.1) 10/28/22 05:38 Nucleated RBC % (auto) 0 % 10/28/22 05:38 Nucleated RBCs # 0.0 /100WBC 10/28/22 05:38 Sodium 137 mmol/L (136-145) 10/28/22 05:38 Potassium 3.7 mmol/L (3.5-5.1) 10/28/22 05:38 Chloride 104 mmol/L (98-107) 10/28/22 05:38 Carbon Dioxide 20 mmol/L (22-29) L 10/28/22 05:38 Anion Gap 16.7 (5-19) 10/28/22 05:38 BUN 21 mg/dL (8-23) 10/28/22 05:38 Creatinine 0.8 mg/dL (0.7-1.2) 10/28/22 05:38 GFR Calculation 95.8 mL/min (90-130) 10/28/22 05:38 Glucose 118 mg/dL (65-115) H 10/28/22 05:38 Calculated Osmolality 288 mOsm/kg (285-295) 10/28/22 05:38 Calcium 9.0 mg/dL (8.5-10.5) 10/28/22 05:38 Magnesium 1.9 mg/dL (1.7-2.3) 10/28/22 05:38 Total Bilirubin 1.4 mg/dL (0.15-1.2) H 10/28/22 05:38 AST 15 U/L (0-40) 10/28/22 05:38 ALT 15 U/L (0-41) 10/28/22 05:38 Alkaline Phosphatase 46 U/L (40-130) 10/28/22 05:38 Total Protein 7.1 g/dL (6.6-8.7) 10/28/22 05:38 Albumin 4.4 g/dL (3.5-5.2) 10/28/22 05:38 Globulin 2.7 g/dL (1.3-4.6) 10/28/22 05:38 SARS-CoV-2 Ag (Rapid) negative (Negative) 10/28/22 05:38 Discharge Plan Discharge Patient Disposition: Home Clinical Impression: Gastroenteritis Condition: Stable Prescriptions: New promethazine 25 mg tablet 25 mg PO Q6H PRN (Reason: nausea and vomiting) Qty: 20 0RF No Action alprazolam 0.25 mg tablet 0.25 mg PO BEDTIME aspirin 81 mg Tablet,Chewable 81 mg PO DAILY metoprolol succinate 25 mg tablet extended release 24 hr 12.5 mg PO DAILY ciprofloxacin HCl 500 mg tablet 500 mg PO BID Qty: 14 0RF Discharge Orders: Discharge ED (Routine); Ordered 10/28/22 Ordered By: Nguyễn Patterson Referrals: David Cartwright MD [Primary Care Provider] - Discharge Diet: Clear Liquid Patient Instructions: Gastroenteritis (ED), Opioid Safety, Pain Management Sign Out Sign Out Data: Patient Sign Out occurred on 10/28/22 at 05:58. Patient's care was discussed, and care was transferred from to Nguyễn Patterson DO. 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 And Refrigeration Inspector for [facility]
[2022-10-28] MEDS: sodium chloride 0.9% 1,000 ML 999 ML IV (05:42)
[2022-10-28] MEDS: ondansetron 2 mg/ML SDV 2 mL 4 MG IVP (05:42)
[2022-10-28 05:48] LABS: Basophils % 0.2 %; Hematocrit 48.9 % (37-53); Lymphocytes # 0.3 10^3/uL (0.8-4.8); Lymphocytes % 2.6 %; Mean Corpuscular HGB Conc 34.2 g/dL (30-55); Mean Corpuscular Hemoglobin 32.2 pg (27-33); Mean Corpuscular Volume 94.2 fl (82-101); Mean Platelet Volume 9.9 fL (7.4-10.4); Monocytes # 0.3 10^3/uL (0.2-0.9); Monocytes % 2.2 %; Neutrophils # 11.88 10^3/uL (1.8-7.7); Neutrophils % 94.7 %; Nucleated Red Blood Cells % 0 %; Platelet Count 250 10^3/cmm (157-399); Red Blood Count 5.19 10^6/uL (3.85-5.65); Red Cell Distribution Width 13.2 % (12.1-15.1); White Blood Count 12.54 10^3/uL (3.29-11.43)
[2022-10-28 06:00] LABS: SARS Covid-2 Antigen negative (Negative)
[2022-10-28 06:06] LABS: Alanine Aminotransferase 15 U/L (0-41); Albumin Level 4.4 g/dL (3.5-5.2); Alkaline Phosphatase 46 U/L (40-130); Anion Gap 16.7 (5-19); Aspartate Amino Transferase 15 U/L (0-40); Blood Urea Nitrogen 21 mg/dL (8-23); Carbon Dioxide 20 mmol/L (22-29); Chloride 104 mmol/L (98-107); Globulin 2.7 g/dL (1.3-4.6); Glomerular Filtration Rate 95.8 mL/min (90-130); Glucose 118 mg/dL (65-115); Magnesium 1.9 mg/dL (1.7-2.3); Osmolality Calculated 288 mOsm/kg (285-295); Potassium 3.7 mmol/L (3.5-5.1); Sodium 137 mmol/L (136-145); Total Bilirubin 1.4 mg/dL (0.15-1.2); Total Protein 7.1 g/dL (6.6-8.7)
[2022-10-28 06:45] VITALS: BP 127/52; PULSE 80; RESP 16; O2SAT 96
== END 2022-10-28 06:46 | disposition home or self-care (01) ==
PROVIDERS: Emergency Medicine; Emergency Provider Family Medicine; PCP Family Medicine
DX: K52.9 Noninfective gastroenteritis and colitis, unspecified (principal); Z79.82 Long term (current) use of aspirin; Z20.822 Contact with and (suspected) exposure to COVID-19
CPT/HCPCS: 80053; 83735; 85025; 87426; 96361; 96374; 99284; J2405; J7030